=== PATIENT | female | born 1930 | race Caucasian/White ===

== ENCOUNTER 2017-04-30 16:06 | Inpatient (IN) ==
--- NOTE | 2017-04-30 17:16 | History & Physical Report ---
<Rebekah Quijano V - Last Filed: 04/30/17 17:12> History of Present Illness Date: 04/30/17 Chief complaint: Hyponatremia, Weakness, recent UTI HPI: Patient is a very pleasant 87-year-old female who resides independently at home with her . She had been treated for a urinary tract infection 2 weeks ago on Macrobid. Her symptoms did not improve and she is reevaluated by Dr. Chairez on 04/23/17. At that time he placed her on Bactrim antibiotic for ongoing coverage. Today she followed up because she felt more weak, nauseated and shaky at times. Routine laboratory studies were obtained at [facility] and patient was found to be hyponatremic with a sodium level of 117. At that time, potassium was 5.0, BUN 17, creatinine 1.2. Her white count was normal at 7.2, hemoglobin 9.9, hematocrit 28, platelet count 247. Given symptomatic hyponatremia. The hospitalist services were contacted directly and accepted patient for direct admission. She does qualify for an inpatient. Given the significance of her hyponatremia at 117. She is admitted under the care of Dr. Douglas, expect to stay will be greater than 2 overnights Abby is very pleasant, she is seen on arrival to [facility]. She is alert and oriented. She notes that since the at which time her antibiotic was changed from Macrobid to Bactrim. She has been drinking more fluid. She also reports has been somewhat constipated and bowels have not moved for approximately 4-5 days. Is any recent injuries. No fevers or chills. Denies any pain on examination. We did discuss advanced directives and she does verify that she would like to be a full code. Review of Systems All systems: reviewed and no additional remarkable complaints except as stated - Constitutional Constitutional: Present: weakness (generalized) - Gastrointestinal Gastrointestinal: Present: constipation PFSH Hypertension Hyperlipidemia Hypothyroidism GERD. Next, an history of elevated heart rate History of anemia Osteoporosis urinary incontinence. Surgical History: Hysterectomy. Colonoscopy and EGD 02/2014 Family History: Father-positive for diabetes Mother-history of heart disease. Child with lymphoma Medications Home Medications Medication Instructions Recorded Confirmed Type Multivitamins W-Minerals 1 cap PO DAILY #0 04/22/11 04/30/17 History (Multivitamin) Omeprazole 1 tab PO BID #0 04/22/11 04/30/17 History Simvastatin 1 tab PO HS #0 04/22/11 04/30/17 History Metoprolol Succinate 1 tab PO BID #0 02/06/14 04/30/17 History Oxybutynin Chloride 1 tab PO DAILY #0 02/06/14 04/30/17 History Naproxen 1 tab PO BID #0 10/06/15 04/30/17 History Furosemide [Lasix] 20 mg PO DAILY 04/30/17 04/30/17 History Guaifenesin 04/30/17 History Levothyroxine Tab [Synthroid] 75 mcg PO ACB 04/30/17 04/30/17 History Allergies Allergy/AdvReac Type Severity Reaction Status Date / Time atorvastatin Allergy Unknown Unverified 02/07/14 13:37 levofloxacin Allergy Unknown Unverified 02/07/14 13:37 Exam Vital Signs: Pulse Rate 61 04/30/17 16:48 Respiratory Rate 20 04/30/17 16:48 Blood Pressure 164/68 H 04/30/17 16:48 Pulse Oximetry 99 04/30/17 16:48 Oxygen Delivery Method Room Air - Constitutional Present: no acute distress, well nourished, well developed - Routine HEENT Exam Head: Present: normocephalic Eye: Present: EOMI, PERRL ENT: Present: mucous membranes moist, dentition normal - Routine Neck Exam Present: supple - Routine Respiratory Exam Present: CTA bilaterally. Absent: wheezes - Routine Cardiovascular Exam Present: RRR, S1, S2, no murmur. Absent: murmur - Routine Abdominal Exam Present: soft, non distended. Absent: normoactive bowel sounds (hypoactive), tenderness - Routine Extremities Exam Present: normal capillary refill - Routine Back/Spine/Pelvis Exam Back/Spine: Present: full ROM - Routine Skin Exam Present: intact, dry, warm - Routine Neurological Exam Present: alert, oriented X3, CN II-XII intact - Routine Psychiatric Exam Present: normal affect, normal thought process Assessment and Plan (1) Hyponatremia Current visit: Yes Status: Acute Present on admission. Sodium 117 (2) Weakness Current visit: Yes Status: Acute (3) Hypertension Current visit: Yes Status: Chronic (4) Hyperlipidemia Current visit: Yes Status: Chronic (5) Hypothyroidism Current visit: Yes Status: Chronic (6) OP (osteoporosis) Current visit: Yes Status: Chronic (7) GERD (gastroesophageal reflux disease) Current visit: Yes Status: Chronic (8) History of anemia Current visit: Yes Status: Chronic DVT Prophylaxis: SCD's Resuscitation Status: Full Code Assessment and Plan: 04/29/17-initial admission Admit patient to inpatient status under the care of Dr. Douglas with the hospitalist services for hyponatremia and weakness. Upon mission we will recheck CBC, BMP and urinalysis as well as urine sodium and urine creatinine. Will calculate excretion of sodium (FENa) Suspect hyponatremia is multifactorial including recent course of Bactrim, accompanied with increased oral intake of water. Patient is also on a daily diuretic, Lasix 40 mg daily which may play a role in hyponatremia Monitor patient on cardiac telemetry Patient does indicate that she is constipated. She does take Colace 100 milligrams twice a day at home. We will continue this, plus add scheduled MiraLAX, when necessary milk of magnesia for more aggressive bowel motivation SCDs to bilateral lower external for DVT prophylaxis Will recheck CBC and BMP tomorrow morning to follow blood counts, renal function and electrolytes. Will discuss further orders and plan of care with attending, Dr. Douglas At time of discharge medical care will return to her primary care provider, Dr. Chairez Sepsis Assessment - Evaluation Sepsis screening result: No Definite Risk Hospital Course Summary Disclaimer: The visit summary below is not to be considered part of the above Progress Note. Hospital Course: 04/29/17-initial admission Admit patient to inpatient status under the care of Dr. Douglas with the hospitalist services for hyponatremia and weakness. Upon mission we will recheck CBC, BMP and urinalysis as well as urine sodium and urine creatinine. Will calculate excretion of sodium (FENa) Suspect hyponatremia is multifactorial including recent course of Bactrim, accompanied with increased oral intake of water. Patient is also on a daily diuretic, Lasix 40 mg daily which may play a role in hyponatremia Monitor patient on cardiac telemetry Patient does indicate that she is constipated. She does take Colace 100 milligrams twice a day at home. We will continue this, plus add scheduled MiraLAX, when necessary milk of magnesia for more aggressive bowel motivation SCDs to bilateral lower external for DVT prophylaxis Will recheck CBC and BMP tomorrow morning to follow blood counts, renal function and electrolytes. Will discuss further orders and plan of care with attending, Dr. Douglas At time of discharge medical care will return to her primary care provider, Dr. Chairez <StellaChinaKatharine A - Last Filed: 04/30/17 18:35> History of Present Illness Date: 04/30/17 [facility] Patient Stated Medical History Cataracts Yes: SURGERY Hearing Loss Yes Hypertension Yes Gastroesophageal Reflux Yes Disease Hx Urinary Tract Infection Yes Anemia Yes Osteoarthritis Yes Exam Vital Signs: Pulse Rate 61 04/30/17 16:48 Respiratory Rate 20 04/30/17 16:48 Blood Pressure 164/68 H 04/30/17 16:48 Pulse Oximetry 99 04/30/17 16:48 Oxygen Delivery Method Room Air Height: 5 ft 8 in Weight: 128 lb 1.417 oz Results - Labs CBC & Chem 7: 04/30/17 17:29 04/30/17 17:29 Assessment and Plan (1) Hyponatremia Current visit: Yes Status: Acute (2) Weakness Current visit: Yes Status: Acute (3) Hypertension Current visit: Yes Status: Chronic (4) Hyperlipidemia Current visit: Yes Status: Chronic (5) Hypothyroidism Current visit: Yes Status: Chronic (6) OP (osteoporosis) Current visit: Yes Status: Chronic (7) GERD (gastroesophageal reflux disease) Current visit: Yes Status: Chronic (8) History of anemia Current visit: Yes Status: Chronic Assessment and Plan: I have independently evaluated and examined this patient. I reviewed the chart, the patient's history, and the SUPERVISOR [employer]RI[employer]/PA"s documented findings as above. We discussed and formulated the assessment and plan as above with additions as below. On further review, the patient she was diagnosed with hyponatremia in 2014. She reports that she is not sure what causes that she does not recall having CT scans or other imaging studies during that time. Of interest, she has seen Dr. Rae for the last several years she thinks for iron deficiency anemia and she has required IV iron about 6 months ago. On further questioning about her levofloxacin allergy, it was several years ago and she believes it may have just upset her stomach. Immunization history she gets a yearly flu vaccine and she has had a pneumococcal 13 and 23 vaccine, the most recent one a year ago, her last tetanus was about 5 years ago she is not sure if it included Tdap she has not had a shingles vaccine. On physical exam her heart rhythm is irregular at the time of my exam with a soft murmur will need close follow-up. Plan to further evaluate causes of SIADH-we'll start with a PA and lateral chest x-ray as well as the above studies The patient reports her UTI was diagnosed with hematuria we will check a renal sonogram as well. Hospital Course Summary Disclaimer: The visit summary below is not to be considered part of the above Progress Note.
[2017-04-30] MEDS: DOCUSATE SODIUM 100 MG CAPSULE PO SCH (20:47)
[2017-04-30] MEDS: POLYETHYL GLYCOL 3350 17gm PACKET PO SCH (20:48)
[2017-04-30] MEDS ORDERED: ACETAMINOPHEN 325 MG TABLET PO PRN (23:35)
[2017-05-01] MEDS: POLYETHYL GLYCOL 3350 17gm PACKET PO SCH (09:10)
[2017-05-01] MEDS: DOCUSATE SODIUM 100 MG CAPSULE PO SCH ×2 (09:10→20:28)
[2017-05-01] MEDS: SALINE FLUSH 10ml SYRINGE IVF PRN (09:10)
[2017-05-01] MEDS ORDERED: NON-FORMULARY MEDICATION 1 EACH EACH (Albuterol Sulfate [Proair Respiclick] 2 PUFF) IH PRN (11:06)
[2017-05-01] MEDS: LEVOTHYROXINE 75 MCG TABLET PO SCH (11:14)
[2017-05-01] MEDS ORDERED: ALBUTEROL 2.5mg/3ml (0.083%) NEB AEROSOL PRN (11:25)
[2017-05-01] MEDS: NS 1,000 ML IV SCH (16:55)
[2017-05-02] MEDS: NS 1,000 ML IV SCH ×2 (02:47→14:51)
[2017-05-02] MEDS: LEVOTHYROXINE 75 MCG TABLET PO SCH (07:01)
[2017-05-02] MEDS: POLYETHYL GLYCOL 3350 17gm PACKET PO SCH (08:25)
[2017-05-02] MEDS: MULTI-VITAMIN + MINERAL TABLET PO SCH (08:25)
[2017-05-02] MEDS: DOCUSATE SODIUM 100 MG CAPSULE PO SCH ×2 (08:25→20:00)
--- NOTE | 2017-05-02 10:20 | XRay Report ---
INDICATION: Hyponatremia PROCEDURE: CHEST 2-VIEWS UPRIGHT (PA & LAT) Encounter: Initial COMPARISON: October 07, 2015 FINDINGS: Prior left hilar airspace consolidation has improved. There is some mild interstitial prominence. No lobar pneumonia. Small pleural effusions. No pneumothorax. Heart size and mediastinal contours are stable. Scoliosis. Impression: Mild pulmonary edema. .
--- NOTE | 2017-05-02 10:25 | Ultrasound Report ---
Indication: hematuria PROCEDURE: US renal BI: Encounter: Initial Comparison: None Technique: Grayscale and color Doppler sonographic imaging of both kidneys was performed. FINDINGS: Both kidneys are present with mild to moderate cortical thinning and normal echogenicity. Mild bilateral hydronephrosis. No renal masses. Right kidney measures 8.7 cm in length. Left kidney measures 9 cm in length. Incidental is made of a large shadowing gallstone within the gallbladder. No evidence of gallbladder wall thickening. IMPRESSION: 1. Mild hydronephrosis bilaterally. 2. Cholelithiasis. There is a preliminary report by [facility]. .
[2017-05-02] MEDS: OMEPRAZOLE 20 MG CAPSULE PO SCH ×2 (11:31→20:00)
[2017-05-02] MEDS: AMLODIPINE 2.5 MG TABLET PO SCH (12:12)
[2017-05-02] MEDS ORDERED: PNEUMOCOCCAL 23 VACCINE 0.5ml INJECTION IM ONE (15:00)
--- NOTE | 2017-05-02 15:15 | Progress Note ---
<Felisha Berger D - Last Filed: 05/02/17 15:12> Subjective: Abby is seen today in follow up. She is alert, starting to feel better. She endorses general malaise and fairly severe fatigue over the last month. In addition, she has been struggling with poor appetite, and has been forcing herself to eat. She has been drinking quite a bit of water. Is starting to feel better. Her family member reports that she is eating better now that she has been here in the hospital. We had a long discussion today re: treatment for sodium, atrial fib, etc. She has been restarted on her beta-gita due to paroxysmal atrial fib. HR is controlled and she remains asx. Chart is reviewed for collateral information. Have d/w Dr. Douglas and RN throughout the day. Objective Vital signs: Temperature 97.5 F 05/02/17 12:15 Pulse Rate 75 05/02/17 12:15 Respiratory Rate 16 05/02/17 12:15 Blood Pressure 140/65 H 05/02/17 12:15 Pulse Oximetry 98 05/02/17 12:15 Oxygen Delivery Method Room Air Rhythm: Atrial Fibrillation with Normal Ventricular Rate Weight: 126 lb 1.671 oz - Constitutional Present: no acute distress, thin, cooperative - Routine HEENT Exam Head: Present: normocephalic, atraumatic Eye: Present: EOMI, PERRL ENT: Present: mucous membranes moist - Routine Respiratory Exam Present: CTA bilaterally, diminished air movement (In bases). Absent: rhonchi, wheezes, crackles - Routine Cardiovascular Exam Present: S1, S2, no murmur, irregular rhythm, irregularly irregular. Absent: RRR - Routine Abdominal Exam Present: soft, normoactive bowel sounds, non distended, non tender - Routine Extremities Exam Present: no edema, non tender, full ROM - Routine Musculoskeletal Exam Musculoskeletal: Present: no clubbing or cyanosis, no tenderness, no erythema, moving extremities well - Routine Skin Exam Present: intact, dry, warm - Routine Neurological Exam Present: alert, oriented X3, CN II-XII intact, moving all extremities - Routine Psychiatric Exam Present: normal affect, normal thought process, cooperative, good insight, good judgment Results - Labs CBC & Chem 7: 05/02/17 11:09 05/02/17 11:09 Labs: Laboratory Results - last 24 hr 05/01/17 05/02/17 05/02/17 22:57 04:20 11:09 WBC 5.5 RBC 2.84 L Hgb 9.4 L Hct 28.0 L MCV 98.6 MCH 33.1 MCHC 33.6 RDW Std Deviation 42.3 Plt Count 185 MPV 8.9 L Immature Gran % (Auto) 1.5 H Neut % (Auto) 67.1 H Lymph % (Auto) 15.1 L Villalba % (Auto) 11.8 H Eos % (Auto) 3.6 Baso % (Auto) 0.9 Neut # 3.7 Lymph # 0.8 L Villalba # 0.7 Eos # 0.2 Baso # 0.1 Abs Immat Gran (auto) 0.08 H Turbidity < 20 < 20 Sodium 124 L D 124 L Potassium 5.4 H 5.2 H Chloride 97 L 99 Carbon Dioxide 21 L 20 L Anion Gap 6 5 BUN 20.0 H 17.0 Creatinine 1.0 0.9 GFR Calculation 52 59 BUN/Creatinine Ratio 20 19 Glucose 77 72 Calculated Osmolality 242 L 241 L Calcium 9.9 D 9.7 Icterus Index < 2 < 2 Specimen Hemolysis < 15 < 15 05/02/17 11:09 WBC RBC Hgb Hct MCV MCH MCHC RDW Std Deviation Plt Count MPV Immature Gran % (Auto) Neut % (Auto) Lymph % (Auto) Villalba % (Auto) Eos % (Auto) Baso % (Auto) Neut # Lymph # Villalba # Eos # Baso # Abs Immat Gran (auto) Turbidity Sodium 129 L D Potassium Chloride Carbon Dioxide Anion Gap BUN Creatinine GFR Calculation BUN/Creatinine Ratio Glucose Calculated Osmolality Calcium Icterus Index Specimen Hemolysis - Imaging and Cardiology US - abdomen Additional comments: Renal sonos IMPRESSION: 1. Mild hydronephrosis bilaterally. 2. Cholelithiasis. There is a preliminary report by [facility]. . Chest x-ray Additional comments: CXR Impression: Mild pulmonary edema. . Assessment and Plan (1) Hyponatremia Current visit: Yes Status: Acute Present on admission. 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 Hold diuretics for now. Consider PO fluid restriction when she returns home. Will target Na of around 130 at the time of dismissal. Likely multifactoral. Assess TSH. *Hyperkalemia- Continue to monitor closely. She will need to avoid NASEEM/ARB/NSAIDs/Bactrim. She may benefit from a renal consultation as an outpatient to monitor chronic sodium and chronic potassium issues. *HTN/Atrial fib Continue Amlodipine. Resumed metoprolol. HR is controlled. She is not on any anticoagulation. Would consider adding at least an ASA. Unclear if blood loss is a concern for her given chronic anemia. *Anemia, Chronic- Assess Iron panel. Resume PPI BID given GERD-like sx. *Fatigue, poor appetite Assess Iron- monitor ferritin. Assess TSH- may do better if we target a TSH around 1.0. Could add Remeron, but will need to use caution given current SIADH concerns. Overall, pt is slowly improving. Will recheck sodium later today. Repeat labs in AM. Chart, documentation, imaging reviewed. Sepsis Assessment - Evaluation Sepsis screening result: No Definite Risk Hospital Course Summary Disclaimer: The visit summary below is not to be considered part of the above Progress Note. Hospital Course: 04/29/17-initial admission Admit patient to inpatient status under the care of Dr. Douglas with the hospitalist services for hyponatremia and weakness. Upon mission we will recheck CBC, BMP and urinalysis as well as urine sodium and urine creatinine. Will calculate excretion of sodium (FENa) Suspect hyponatremia is multifactorial including recent course of Bactrim, accompanied with increased oral intake of water. Patient is also on a daily diuretic, Lasix 40 mg daily which may play a role in hyponatremia Monitor patient on cardiac telemetry Patient does indicate that she is constipated. She does take Colace 100 milligrams twice a day at home. We will continue this, plus add scheduled MiraLAX, when necessary milk of magnesia for more aggressive bowel motivation SCDs to bilateral lower external for DVT prophylaxis Will recheck CBC and BMP tomorrow morning to follow blood counts, renal function and electrolytes. Will discuss further orders and plan of care with attending, Dr. Douglas At time of discharge medical care will return to her primary care provider, Dr. 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 Hold diuretics for now. Consider PO fluid restriction when she returns home. Will target Na of around 130 at the time of dismissal. Likely multifactoral. Assess TSH. *Hyperkalemia- Continue to monitor closely. She will need to avoid NASEEM/ARB/NSAIDs/Bactrim. She may benefit from a renal consultation as an outpatient to monitor chronic sodium and chronic potassium issues. *HTN/Atrial fib Continue Amlodipine. Resumed metoprolol. HR is controlled. She is not on any anticoagulation. Would consider adding at least an ASA. Unclear if blood loss is a concern for her given chronic anemia. *Anemia, Chronic- Assess Iron panel. Resume PPI BID given GERD-like sx. *Fatigue, poor appetite Assess Iron- monitor ferritin. Assess TSH- may do better if we target a TSH around 1.0. Could add Remeron, but will need to use caution given current SIADH concerns. <Katharine Douglas - Last Filed: 05/02/17 17:23> Objective Vital signs: Temperature 96.1 F L 05/02/17 16:12 Pulse Rate 81 05/02/17 16:12 Respiratory Rate 16 05/02/17 16:12 Blood Pressure 139/60 05/02/17 16:12 Pulse Oximetry 97 05/02/17 16:12 Oxygen Delivery Method Room Air Results - Labs CBC & Chem 7: 05/02/17 11:09 05/02/17 11:09 Assessment and Plan (1) Hyponatremia Current visit: Yes Status: Acute (2) Weakness Current visit: Yes Status: Acute (3) Hypertension Current visit: Yes Status: Chronic (4) Hyperlipidemia Current visit: Yes Status: Chronic (5) Hypothyroidism Current visit: Yes Status: Chronic (6) OP (osteoporosis) Current visit: Yes Status: Chronic (7) GERD (gastroesophageal reflux disease) Current visit: Yes Status: Chronic (8) History of anemia Current visit: Yes Status: Chronic Assessment and Plan: I have independently evaluated and examined this patient. I reviewed the chart, the patient's history, and the BOLT LABELER/PA's documented findings as above. We discussed and formulated the assessment and plan as above with additions as below. Patient was seen and examined by me at 1600. She is up walking in the halls with a walker and assistance. She reports she is feeling better. Agree with exam as outlined above. Recheck sodium this evening and recheck BMP in the morning as well. Will discuss with Dr. Chairez, if the patient is a candidate for aspirin therapy given her atrial fibrillation. Hospital Course Summary Disclaimer: The visit summary below is not to be considered part of the above Progress Note.
[2017-05-02] MEDS ORDERED: PNEUMOCOCCAL VAC ADMIN CHARGE INJ ONE (16:10)
--- NOTE | 2017-05-02 17:16 | Progress Note ---
Progress Note: This is a late entry for 05/01/2016. A handwritten copy is on the paper chart secondary to [employer] issues. The patient was seen at's 1600. The paper note was written at 1800 S: She is resting quietly. She reports she walked in the halls earlier this and was up in a chair for both breakfast and lunch without difficulty. She eats very little secondary to very poor appetite. She has lost about 6 pounds over the last year and a half. She denies fevers, chills, sweats, sore throat, shortness of breath, she does have slight dyspnea on exertion, and occasional dry cough, she denies nausea, vomiting, diarrhea. She has had 1 bowel movement today with the help of the laxative. She has slight indigestion. She reports urinary frequency but no hematuria. O: Selected Entries 05/01/17 14:56 Temperature 97.0 F Pulse Rate 73 Blood Pressure 137/64 Laboratory Tests 04/30/17 21:19 Ur Random Creatinine 19.8 Ur Random Sodium 37 In general, the patient is alert and oriented 3, cooperative with exam, and in no respiratory distress. HEENT: Head is atraumatic, normocephalic, no conjunctival petechiae, no oral thrush, mucous membranes are moist and pink. Lungs: Decreased breath sounds CV: Irregularly irregular without murmur Abdomen: Soft, nontender, bowel sounds are present, there is no guarding no rebound. Extremities: No clubbing, no cyanosis, no edema. Skin: Warm and dry no sign of rash Neuro: Patient is alert Laboratory Tests 04/30/17 04/30/17 17:29 21:19 Sodium 117 L* Ur Random Sodium 37 Her calculated fractional excretion of sodium is 0.5% Preliminary report of her renal sono shows 3 gallstones when immobile in the neck and extrarenal pelvis on the right kidney Chest x-ray on my review shows no abnormalities Assessment: Hyponatremia probably prerenal question SIADH Hypothyroid on thyroid replacement Gall stones Plan: We'll start IV fluids normal saline 100 cc an hour and recheck sodium in 6 hours and in the morning will eventually need gallbladder findings further addressed
[2017-05-02] MEDS: SALINE FLUSH 10ml SYRINGE IVF PRN (19:49)
[2017-05-03] MEDS: LEVOTHYROXINE 75 MCG TABLET PO SCH (06:45)
[2017-05-03] MEDS: OMEPRAZOLE 20 MG CAPSULE PO SCH ×2 (06:45→20:48)
[2017-05-03] MEDS: MULTI-VITAMIN + MINERAL TABLET PO SCH (08:34)
[2017-05-03] MEDS: DOCUSATE SODIUM 100 MG CAPSULE PO SCH ×2 (08:34→20:49)
[2017-05-03] MEDS: AMLODIPINE 2.5 MG TABLET PO SCH (08:34)
[2017-05-03] MEDS: POLYETHYL GLYCOL 3350 17gm PACKET PO SCH (08:35)
[2017-05-03] MEDS: NS 1,000 ML IV SCH (10:21)
--- NOTE | 2017-05-03 16:18 | Progress Note ---
Subjective: The patient was seen 1500. The patient reports she is doing well and slept well during the night. Denies fevers, chills, sweats. Denies sore throat, shortness of breath, dyspnea on exertion, cough, sputum production, chest pain. Denies nausea, vomiting or diarrhea. Is urinating without difficulty, denies dysuria. She has been up walking in the [place] several times and she does feel stronger. Objective Vital signs: Temperature 98.3 F 05/03/17 15:28 Pulse Rate 82 05/03/17 16:09 Respiratory Rate 16 05/03/17 15:28 Blood Pressure 110/58 05/03/17 15:28 Pulse Oximetry 96 05/03/17 16:09 Oxygen Delivery Method Room Air Weight: 127 lb 10.362 oz - Additional findings Additional findings: In general, the patient is alert and oriented 3, cooperative with exam, and in no respiratory distress. HEENT: Head is atraumatic, normocephalic, no conjunctival petechiae, no oral thrush, mucous membranes are moist and pink. Lungs: Clear to auscultation without wheezes, crackles or rhonchi, diminished breath sounds in the bases CV: Irregularly irregular Abdomen: Soft, nontender, bowel sounds are present, there is no guarding no rebound. Extremities: No clubbing, no cyanosis, no edema. Skin: Warm and dry, no sign of rash Neuro: Patient is alert Results - Labs CBC & Chem 7: 05/02/17 11:09 05/03/17 04:10 Assessment and Plan (1) Hyponatremia Current visit: Yes Status: Acute Present on admission. 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 *Hyperkalemia- *HTN/Atrial fib Chronic anemia *Fatigue, poor appetite Plan: We'll consider normal saline at 50 cc an hour and recheck sodium in the morning we'll monitor potassium closely history of atrial fibrillation the patient currently is not on aspirin Her Lasix is Currently on hold eventually she will need further evaluation of her gallstones, she is currently asymptomatic Continue Amlodipine. Resumed metoprolol. L Sepsis Assessment - Evaluation Sepsis screening result: No Definite Risk Hospital Course Summary Disclaimer: The visit summary below is not to be considered part of the above Progress Note. Hospital Course: 04/29/17-initial admission Admit patient to inpatient status under the care of Dr. Douglas with the hospitalist services for hyponatremia and weakness. Upon mission we will recheck CBC, BMP and urinalysis as well as urine sodium and urine creatinine. Will calculate excretion of sodium (FENa) Suspect hyponatremia is multifactorial including recent course of Bactrim, accompanied with increased oral intake of water. Patient is also on a daily diuretic, Lasix 40 mg daily which may play a role in hyponatremia Monitor patient on cardiac telemetry Patient does indicate that she is constipated. She does take Colace 100 milligrams twice a day at home. We will continue this, plus add scheduled MiraLAX, when necessary milk of magnesia for more aggressive bowel motivation SCDs to bilateral lower external for DVT prophylaxis Will recheck CBC and BMP tomorrow morning to follow blood counts, renal function and electrolytes. Will discuss further orders and plan of care with attending, Dr. Douglas At time of discharge medical care will return to her primary care provider, Dr. 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 Hold diuretics for now. Consider PO fluid restriction when she returns home. Will target Na of around 130 at the time of dismissal. Likely multifactoral. Assess TSH. *Hyperkalemia- Continue to monitor closely. She will need to avoid NASEEM/ARB/NSAIDs/Bactrim. She may benefit from a renal consultation as an outpatient to monitor chronic sodium and chronic potassium issues. *HTN/Atrial fib Continue Amlodipine. Resumed metoprolol. HR is controlled. She is not on any anticoagulation. Would consider adding at least an ASA. Unclear if blood loss is a concern for her given chronic anemia. *Anemia, Chronic- Assess Iron panel. Resume PPI BID given GERD-like sx. *Fatigue, poor appetite Assess Iron- monitor ferritin. Assess TSH- may do better if we target a TSH around 1.0. Could add Remeron, but will need to use caution given current SIADH concerns. 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 *Hyperkalemia- *HTN/Atrial fib Chronic anemia *Fatigue, poor appetite Plan: We'll consider normal saline at 50 cc an hour and recheck sodium in the morning we'll monitor potassium closely history of atrial fibrillation the patient currently is not on aspirin Her Lasix is Currently on hold eventually she will need further evaluation of her gallstones, she is currently asymptomatic Continue Amlodipine. Resumed metoprolol. L
[2017-05-03 16:32] VITALS: BMI 19.4
[2017-05-04] MEDS: LEVOTHYROXINE 75 MCG TABLET PO SCH (06:32)
[2017-05-04] MEDS: OMEPRAZOLE 20 MG CAPSULE PO SCH ×2 (06:32→20:33)
[2017-05-04] MEDS: NS 1,000 ML IV SCH (08:19)
[2017-05-04] MEDS: MULTI-VITAMIN + MINERAL TABLET PO SCH (08:20)
[2017-05-04] MEDS: POLYETHYL GLYCOL 3350 17gm PACKET PO SCH ×2 (08:21)
[2017-05-04] MEDS: DOCUSATE SODIUM 100 MG CAPSULE PO SCH (08:21)
[2017-05-04] MEDS: AMLODIPINE 2.5 MG TABLET PO SCH (08:21)
--- NOTE | 2017-05-04 16:30 | Progress Note ---
Subjective: Mrs. Peterson was resting in bed when seen. She reports that she feels all right and that her sodium is better. She denied dyspnea, cough, palpitations, nausea, or constipation. She reports that she's been ambulating with a walker and that her strength feels back to normal. She denied any lightheadedness whatsoever. Objective Vital signs: Temperature 97.6 F 05/04/17 15:49 Pulse Rate 72 05/04/17 16:00 Respiratory Rate 20 05/04/17 15:49 Blood Pressure 138/64 05/04/17 15:49 Pulse Oximetry 97 05/04/17 15:49 Oxygen Delivery Method Room Air EXAM General-NAD, alert, fluent speech HEENT-conjunctiva clear, sclera anicteric, conjugate gaze, neck supple and without adenopathy Lungs-respirations are nonlabored with decreased airflow throughout, breath sounds clear anteriorly/laterally Cardiac-regular rhythm with occasional ectopic beats, S1-S2, soft systolic murmur Abd-soft, nontender, bowel sounds present Ext-without edema Neuro-sensation intact 4 extremities, moving upper extremities normally Psych-calm, cooperative, oriented 3 - Weight: 58.8 kg Results - Labs CBC & Chem 7: 05/02/17 11:09 05/04/17 04:49 Assessment and Plan (1) Hyponatremia Current visit: Yes Status: Acute Present on admission. 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 Hyperkalemia- HTN/Atrial fib Chronic anemia Fatigue, poor appetite CKD-stage 3 Cholelithiasis, asymptomatic Plan: Doing well, sodium continues to improve with low-volume fluid replacement. Furosemide remains on hold. Continue fluids overnight, if sodium stable in the morning anticipate discharge back to [facility]. Incidental notation of large gallstone within the gallbladder wall earlier in the hospitalization, right upper quadrant is unremarkable and no gallbladder wall thickening reported. Liver enzymes unremarkable-no further assessment planned. Blood pressure/heart rate stable. Telemetry reviewed-sinus rhythm with occasional PVCs and frequent APCs. Sepsis Assessment - Evaluation Sepsis screening result: No Definite Risk Hospital Course Summary Disclaimer: The visit summary below is not to be considered part of the above Progress Note. Hospital Course: 04/29/17-initial admission Admit patient to inpatient status under the care of Dr. Douglas with the hospitalist services for hyponatremia and weakness. Upon mission we will recheck CBC, BMP and urinalysis as well as urine sodium and urine creatinine. Will calculate excretion of sodium (FENa) Suspect hyponatremia is multifactorial including recent course of Bactrim, accompanied with increased oral intake of water. Patient is also on a daily diuretic, Lasix 40 mg daily which may play a role in hyponatremia Monitor patient on cardiac telemetry Patient does indicate that she is constipated. She does take Colace 100 milligrams twice a day at home. We will continue this, plus add scheduled MiraLAX, when necessary milk of magnesia for more aggressive bowel motivation SCDs to bilateral lower external for DVT prophylaxis Will recheck CBC and BMP tomorrow morning to follow blood counts, renal function and electrolytes. Will discuss further orders and plan of care with attending, Dr. Douglas At time of discharge medical care will return to her primary care provider, Dr. 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 Hold diuretics for now. Consider PO fluid restriction when she returns home. Will target Na of around 130 at the time of dismissal. Likely multifactoral. Assess TSH. *Hyperkalemia- Continue to monitor closely. She will need to avoid NASEEM/ARB/NSAIDs/Bactrim. She may benefit from a renal consultation as an outpatient to monitor chronic sodium and chronic potassium issues. *HTN/Atrial fib Continue Amlodipine. Resumed metoprolol. HR is controlled. She is not on any anticoagulation. Would consider adding at least an ASA. Unclear if blood loss is a concern for her given chronic anemia. *Anemia, Chronic- Assess Iron panel. Resume PPI BID given GERD-like sx. *Fatigue, poor appetite Assess Iron- monitor ferritin. Assess TSH- may do better if we target a TSH around 1.0. Could add Remeron, but will need to use caution given current SIADH concerns. 05/03/17 16:26 We'll consider normal saline at 50 cc an hour and recheck sodium in the morning we'll monitor potassium closely history of atrial fibrillation the patient currently is not on aspirin Her Lasix is Currently on hold eventually she will need further evaluation of her gallstones, she is currently asymptomatic Continue Amlodipine. Resumed metoprolol. 05/04/17 16:43 Doing well, sodium continues to improve with low-volume fluid replacement. Furosemide remains on hold. Continue fluids overnight, if sodium stable in the morning anticipate discharge back to [facility]. Incidental notation of large gallstone within the gallbladder wall earlier in the hospitalization, right upper quadrant is unremarkable and no gallbladder wall thickening reported. Liver enzymes unremarkable-no further assessment planned. Blood pressure/heart rate stable. Telemetry reviewed-sinus rhythm with occasional PVCs and frequent APCs.
[2017-05-04] MEDS: SIMVASTATIN 40 MG TABLET PO SCH ×2 (20:33→22:31)
[2017-05-04] MEDS: SENNA + DOCUSATE TABLET PO SCH ×2 (20:33→20:46)
[2017-05-05] MEDS: NS 1,000 ML IV SCH (04:43)
[2017-05-05] MEDS: OMEPRAZOLE 20 MG CAPSULE PO SCH (06:13)
[2017-05-05] MEDS: LEVOTHYROXINE 75 MCG TABLET PO SCH (06:13)
[2017-05-05 07:37] VITALS: BP 145/75; RESP 16; TEMP 96.5; O2SAT 95
[2017-05-05] MEDS: POLYETHYL GLYCOL 3350 17gm PACKET PO SCH (08:30)
[2017-05-05] MEDS: SENNA + DOCUSATE TABLET PO SCH (08:31)
[2017-05-05] MEDS: MULTI-VITAMIN + MINERAL TABLET PO SCH (08:31)
[2017-05-05] MEDS: AMLODIPINE 2.5 MG TABLET PO SCH (08:31)
[2017-05-05 10:10] VITALS: PULSE 85
--- NOTE | 2017-05-05 11:36 | Discharge Instructions ---
Discharge Plan - Med Rec/Dispo Referrals/Follow Up: Otis Chairez MD [Family Provider] - 1 Week (Please cancel tomorrows apt and reschedule for 1 weel. Will need labs- BMP at that time) Fabienne Instructions: Hyponatremia (GEN) Prescriptions: New Acetaminophen [Tylenol] 325 - 650 mg PO Q5H PRN tablet PRN Reason: Discomfort PEG 3350 17gm PACKET [Miralax] 17 gm PO DAILY packet Senna + Docusate [Senna Plus Tablet] 1 tab PO BID tablet Sodium Chloride Tab [Salt Tablet] 1 gm PO DAILY #20 tablet Continue Multivitamins W-Minerals (Multivitamin) 1 cap PO DAILY #0 Oxybutynin Chloride 1 tab PO DAILY #0 Metoprolol Succinate 1 tab PO BID #0 Amlodipine Besylate [Norvasc] 2.5 mg PO DAILY #30 tab Levothyroxine Tab [Synthroid] 75 mcg PO ACB Omeprazole 1 tab PO BID #0 Simvastatin 1 tab PO HS #0 Naproxen 1 tab PO BID #0 Albuterol Sulfate [Proair Respiclick] 2 puff IH Q4H PRN PRN Reason: Wheezing Discontinued Furosemide [Lasix] 20 mg PO DAILY Docusate Sodium [Colace] 100 mg PO BID 30 Days No Action Guaifenesin Discharge Instructions/Outpatient Orders: Final Provider Discharge Instructions Location: Determined By Patient - Disposition 01 Discharged Home, Self-Care
--- NOTE | 2017-05-05 12:58 | Discharge Summary ---
Discharge Information Date of admission: 04/30/17 17:09 <TimoMonica L 05/05/17 17:49> 04/30/17 17:09 <Rebekah Quijano V 05/05/17 13:04> Anticipated date of discharge: 05/05/17 <Rebekah Quijano V 05/05/17 13:04> Attending Physician: Monica Greenwood MD <Monica Greenwood 05/05/17 17:49> Monica Greenwood MD <Rebekah Quijano V 05/05/17 13:04> Primary care physician: Otis Chairez MD <Monica Greenwood 05/05/17 17:49> Otis Chairez MD <SammRebekah V 05/05/17 13:04> Consults: None <Rebekah Quijano V 05/05/17 13:04> - Discharge Diagnosis (1) Hyponatremia Status: Resolved (2) Weakness Status: Resolved (3) Hypertension Qualifiers: Qualified Code(s): I10 - Essential (primary) hypertension Status: Chronic (4) Hyperlipidemia Qualifiers: Qualified Code(s): E78.5 - Hyperlipidemia, unspecified Status: Chronic (5) Hypothyroidism Qualifiers: Qualified Code(s): E03.9 - Hypothyroidism, unspecified Status: Chronic (6) OP (osteoporosis) Status: Chronic (7) GERD (gastroesophageal reflux disease) Qualifiers: Qualified Code(s): K21.9 - Gastro-esophageal reflux disease without esophagitis Status: Chronic (8) History of anemia Status: Chronic <Monica Greenwood 05/05/17 17:49> (1) Hyponatremia Status: Resolved (2) Weakness Status: Resolved (3) Hypertension Qualifiers: Hypertension type: essential hypertension Qualified Code(s): I10 - Essential (primary) hypertension Status: Chronic (4) Hyperlipidemia Qualifiers: Hyperlipidemia type: unspecified Qualified Code(s): E78.5 - Hyperlipidemia , unspecified Status: Chronic (5) Hypothyroidism Qualifiers: Hypothyroidism type: acquired Qualified Code(s): E03.9 - Hypothyroidism, unspecified Status: Chronic (6) OP (osteoporosis) Qualifiers: Osteoporosis type: age-related Status: Chronic (7) GERD (gastroesophageal reflux disease) Qualifiers: Esophagitis presence: esophagitis presence not specified Qualified Code(s) : K21.9 - Gastro-esophageal reflux disease without esophagitis Status: Chronic (8) History of anemia Status: Chronic <Rebekah Quijano V - 05/05/17 12:47> - Procedures Procedures: None <Rebekah Quijano V - 05/05/17 13:04> - Laboratory Labs: 05/05/17 04:49 05/05/17 04:49 <Monica Greenwood - 05/05/17 17:49> 05/05/17 04:49 05/05/17 04:49 TSH-1.69 Iron -86. TIBC-272. Magnesium-1.8 Phosphorus-3.4 <Rebekah Quijano V 05/05/17 13:04> - Microbiology None <Rebekah Quijano V 05/05/17 13:04> - Radiology Radiology: 04/30/17-chest x-ray mild pulmonary edema 04/30/17-renal sonogram revealing mild hydronephrosis bilaterally with cholelithiasis <Rebekah Quijano V 05/05/17 13:04> - Pathology None <Rebekah Quijano V 05/05/17 13:04> History of Present Illness HPI: Patient is a very pleasant 87-year-old female who resides independently at home with her . She had been treated for a urinary tract infection 2 weeks ago on Macrobid. Her symptoms did not improve and she is reevaluated by Dr. Chairez on 04/23/17. At that time he placed her on Bactrim antibiotic for ongoing coverage. Today she followed up because she felt more weak, nauseated and shaky at times. Routine laboratory studies were obtained at [facility] and patient was found to be hyponatremic with a sodium level of 117. At that time, potassium was 5.0, BUN 17, creatinine 1.2. Her white count was normal at 7.2, hemoglobin 9.9, hematocrit 28, platelet count 247. Given symptomatic hyponatremia. The hospitalist services were contacted directly and accepted patient for direct admission. She does qualify for an inpatient. Given the significance of her hyponatremia at 117. She is admitted under the care of Dr. Douglas, expect to stay will be greater than 2 overnights Abby is very pleasant, she is seen on arrival to [facility]. She is alert and oriented. She notes that since the at which time her antibiotic was changed from Macrobid to Bactrim. She has been drinking more fluid. She also reports has been somewhat constipated and bowels have not moved for approximately 4-5 days. Is any recent injuries. No fevers or chills. Denies any pain on examination. We did discuss advanced directives and she does verify that she would like to be a full code. <Rebekah Quijano V - 05/05/17 13:04> Hospital Course This is a general summary of the patient's hospital course. For more details refer to the complete medical record. <Monica Greenwood - 05/05/17 17:49> This is a general summary of the patient's hospital course. For more details refer to the complete medical record. <Rebekah Quijano V 05/05/17 13:04> Hospital course: I have independently evaluated and examined this patient. I reviewed the chart, the patient's history, and the CAUSTICISER/PA's documented findings as above. We discussed and formulated the assessment and plan as above with additions as below: Mrs. Peterson reports that she feels good today and that she is less fatigued than admission. Appetite continues to be problematic and she has to force herself to eat but her weight has dropped only about 5 pounds over the past year. The patient is alert and in no distress. Respirations are nonlabored and abdomen is benign. There is no peripheral edema. Findings reviewed with Dr. Chairez-Will add salt tablets as noted above and hold Lasix with plans to reassess electrolytes as an outpatient. Stable for discharge today with plans to follow-up in Dr. Chairez office next week. <TimoMonica han Lorraine - 05/05/17 17:49> Mrs. Peterson was originally admitted on 04/30/17 for acute hyponatremia following recent treatment in the outpatient setting of a urinary tract infection. She had been on Bactrim is thought to potentially have influenced her hyponatremia. On admission her sodium was 117 and this has nicely increased to 132 today. Her chronic diuretic, Lasix has been on hold since admission. Will continue to hold it on discharge and have this reevaluated by primary care provider, Dr. Chairez. She is discharged on salt tablets 1 gram daily. Instructed to follow-up with Dr. Chairez in 1 week to have a BNP at that time Renal sonogram was obtained that revealed mild bilateral hydronephrosis and incidental findings of cholelithiasis. No other acute obstruction. Her fractional excretion of sodium is 0.99%- , likely representing a pre-renal azotemia such as hypovolemia. Regarding her chronic anemia. Iron studies were obtained. Iron was 86, TIBC 272. Otherwise, all medications were continued at time of discharge. It was recommended that she be on senna plus, as well as MiraLAX for chronic bowel motivation. Total discharge time greater than 35 minutes <Rebekah Quijano V - 05/05/17 13:04> Time spent with patient: discharge greater than 30 minutes <Rebekah Quijano V - 05/05/17 13:04> Discharge Plan - Med Rec/Dispo Referrals/Follow Up: Otis Chairez MD [Family Provider] - 1 Week (Please cancel tomorrows apt and reschedule for 1 week. Will need labs- BMP at that time Follow up Appt. with Sofya Estrada on 05/19/2017 at 2:15pm ) < Monica Greenwood - 05/05/17 17:49> Fabienne Instructions: Hyponatremia (GEN) <Monica Greenwood - 05/05/17 17:49> Prescriptions: New Acetaminophen [Tylenol] 325 - 650 mg PO Q5H PRN tablet PRN Reason: Discomfort PEG 3350 17gm PACKET [Miralax] 17 gm PO DAILY packet Senna + Docusate [Senna Plus Tablet] 1 tab PO BID tablet Sodium Chloride Tab [Salt Tablet] 1 gm PO DAILY #20 tablet Continue Multivitamins W-Minerals (Multivitamin) 1 cap PO DAILY #0 Oxybutynin Chloride 1 tab PO DAILY #0 Metoprolol Succinate 1 tab PO BID #0 Amlodipine Besylate [Norvasc] 2.5 mg PO DAILY #30 tab Levothyroxine Tab [Synthroid] 75 mcg PO ACB Omeprazole 1 tab PO BID #0 Simvastatin 1 tab PO HS #0 Naproxen 1 tab PO BID #0 Albuterol Sulfate [Proair Respiclick] 2 puff IH Q4H PRN PRN Reason: Wheezing Discontinued Furosemide [Lasix] 20 mg PO DAILY Docusate Sodium [Colace] 100 mg PO BID 30 Days No Action Guaifenesin <Monica Greenwood 05/05/17 17:49> Discharge Instructions/Outpatient Orders: Final Provider Discharge Instructions Location: Determined By Patient <Monica Greenwood 05/05/17 17:49> - Disposition 01 Discharged Home, Self-Care <Monica Greenwood 05/05/17 17:49>
== END 2017-05-05 13:37 | disposition home or self-care (01) | DRG 645 ==
LOC: MED
PROVIDERS: ADMIT Internal Medicine Infectious Disease; ATTEND Internal Medicine